=== PATIENT | female | born 1990 | race Asian ===

== ENCOUNTER 2024-03-13 14:45 | Inpatient (IN) | payer OTHER ==
[~2024-03-13] VITALS: Ht 160 cm; Wt 72.6 kg
[2024-03-13 14:51] VITALS: BP 132/78; PULSE 76; RESP 16; TEMP 97.9; O2SAT 99
[2024-03-13 15:28] LABS: BASOPHILS % (AUTO) 0.2 % (0.0-2.0); EOSINOPHILS % (AUTO) 0.3 % (0.0-4.0); HEMATOCRIT 37.8 % (36-48); HEMOGLOBIN 12.8 g/dL (12.0-16.0); LYMPHOCYTES # (AUTO) 1.2 K/uL (2.5-16.5); LYMPHOCYTES % (AUTO) 10.5 % (20.5-51.1); MEAN CORPUSCULAR HEMOGLOBIN 30 pg (27-31); MEAN CORPUSCULAR HGB CONC 34 g/dL (33-37); MEAN CORPUSCULAR VOLUME 89.3 fL (80-94); MONOCYTES # (AUTO) 0.3 K/uL (0.8-1.0); MONOCYTES % (AUTO) 2.6 % (1.7-9.3); NEUTROPHILS # (AUTO) 10.2 K/uL (1.8-7.7); NEUTROPHILS % (AUTO) 86.4 % (42.2-75.2); PLATELET COUNT (AUTO) 259 K/uL (140-450); RED BLOOD CELL COUNT(AUTO) 4.24 MIL/uL (4.20-5.40); RED CELL DISTRIBUTION WIDTH 13.2 % (11.6-13.7); WHITE BLOOD COUNT (AUTO) 11.8 K/uL (4.8-10.8)
[2024-03-13 15:39] LABS: APPEARANCE,URINE CLEAR (CLEAR); BILIRUBIN,URINE NEGATIVE (NEGATIVE); BLOOD, URINE 1+ (NEGATIVE); COLOR,URINE YELLOW (YELLOW); LEUKOCYTE ESTERASE ,URINE NEGATIVE (NEGATIVE); NITRITE, URINE NEGATIVE (NEGATIVE); PROTEIN,URINE NEGATIVE (NEGATIVE); UGLUCOSE NEGATIVE (NEGATIVE); UROBILINOGEN,URINE 0.2 EU/dL (0.2 - 1)
[2024-03-13 15:57] LABS: BACTERIA,URINE 10-30 (MOD) /HPF (None Seen); SQUAMOUS EPITHELIAL CELL,UR 4-10 (MOD) /LPF (0-3 (FEW)); WBC,URINE 0-5 /HPF (0-5)
[2024-03-13] MEDS: NACL 0.9% 1,000 ML IV ONE (18:42)
[2024-03-13] MEDS: LIDOCAINE/EPI 1% 1:100000 20 ML VIAL INJ ONE (19:04)
[2024-03-13] MEDS ORDERED: ONDANSETRON 4 MG/2 ML VIAL IVP PRN ×2 (19:15→20:45)
[2024-03-13] MEDS: LACTATED RINGERS 1,000 ML IV SCH (19:15)
[2024-03-13] MEDS ORDERED: MORPHINE SULFATE 4 MG/ML SYR IVP PRN (19:15)
[2024-03-13] MEDS ORDERED: HYDROcodone/APAP 5/325 MG 1 TAB TAB PO PRN (19:15)
[2024-03-13] MEDS ORDERED: MORPHINE SULFATE 2 MG/ML SYR IVP PRN (19:15)
[2024-03-13] MEDS ORDERED: ACETAMINOPHEN 325 MG TAB PO PRN (19:15)
[2024-03-13] MEDS: HYDROmorphone PFS 2 MG/ML SYR ONE (19:23)
[2024-03-13] MEDS: PROPOFOL 200 MG/20 ML VIAL IV ONE (19:25)
[2024-03-13] MEDS ORDERED: SEVOFLURANE 250 ML BTL INH ONE (20:00)
[2024-03-13] MEDS ORDERED: METOCLOPRAMIDE 10 MG/2 ML INJ VIAL ONE (20:00)
[2024-03-13] MEDS ORDERED: GLYCOPYRROLATE 0.2 MG/ML VIAL ONE (20:00)
[2024-03-13] MEDS ORDERED: NEOSTIGMINE 1:1000 10 MG/10 ML VIAL ONE (20:00)
[2024-03-13] MEDS: METOCLOPRAMIDE 10 MG/2 ML INJ VIAL ONE (20:03)
[2024-03-13] MEDS: ROCURONIUM 50 MG/5 ML VIAL IV ONE (20:03)
[2024-03-13] MEDS: DEXAMETHASONE 4 MG/ML VIAL ONE (20:03)
[2024-03-13] MEDS: ONDANSETRON 4 MG/2 ML VIAL ONE (20:03)
[2024-03-13] MEDS: ceFAZolin 2,000 MG VIAL ONE (20:07)
[2024-03-13] MEDS: KETOROLAC 30 MG/ML VIAL ONE (20:25)
[2024-03-13] MEDS ORDERED: HYDROmorphone 1 MG/ML AMP IVP PRN (20:45)
[2024-03-13] MEDS ORDERED: MEPERIDINE 25 MG/ML SYR IVP PRN (20:45)
[2024-03-13 21:30] VITALS: PULSE 90; RESP 18; O2SAT 98
[2024-03-14] VITALS: BP 104/69; PULSE 90; RESP 18; TEMP 97.9; O2SAT 97
[2024-03-14 04:00] VITALS: BP 103/57; PULSE 83; RESP 18; TEMP 97.3; O2SAT 99
[2024-03-14 06:08] LABS: BASOPHILS % (AUTO) 0.1 % (0.0-2.0); HEMOGLOBIN 12.1 g/dL (12.0-16.0); LYMPHOCYTES # (AUTO) 0.7 K/uL (2.5-16.5); LYMPHOCYTES % (AUTO) 7.9 % (20.5-51.1); MEAN CORPUSCULAR HEMOGLOBIN 30 pg (27-31); MEAN CORPUSCULAR HGB CONC 34 g/dL (33-37); MEAN CORPUSCULAR VOLUME 89.1 fL (80-94); MONOCYTES # (AUTO) 0.2 K/uL (0.8-1.0); MONOCYTES % (AUTO) 2.2 % (1.7-9.3); NEUTROPHILS % (AUTO) 89.8 % (42.2-75.2); PLATELET COUNT (AUTO) 253 K/uL (140-450); RED BLOOD CELL COUNT(AUTO) 4.04 MIL/uL (4.20-5.40); RED CELL DISTRIBUTION WIDTH 13.2 % (11.6-13.7); WHITE BLOOD COUNT (AUTO) 8.9 K/uL (4.8-10.8)
[2024-03-14 07:14] LABS: ALBUMIN 3.2 g/dL (3.4-5.0); ANION GAP 12.9 (8-16); CALCIUM 8.2 mg/dL (8.5-10.1); CARBON DIOXIDE 25.4 mmol/L (21-32); CREATININE 0.6 mg/dL (0.6-1.3); POTASSIUM 4.3 mmol/L (3.5-5.1); TOTAL BILIRUBIN 0.5 mg/dL (0.0-1.0); TOTAL PROTEIN, SERUM 6.9 g/dL (6.4-8.2)
[2024-03-14 08:00] VITALS: BP 104/54; PULSE 84; RESP 18; TEMP 98.1; O2SAT 100
[2024-03-14] MEDS: MEDS-TO-BEDS MC SCH (09:11)
[2024-03-14 11:48] VITALS: BP 104/54; PULSE 84; RESP 18; TEMP 98.1
[2024-03-14 12:00] VITALS: BP 104/54; PULSE 84; RESP 18; TEMP 98.1; O2SAT 100
== END 2024-03-14 13:55 | disposition home or self-care (01) | DRG 547 ==
LOC: MED 14:45 → MTU 19:15
PROVIDERS: ADMIT Hospitalist; ATTEND Hospitalist
PROC: 0UB54ZZ Excision of Right Fallopian Tube, Percutaneous Endoscopic Approach (ICD-10-PCS; 2024-03-13)
PROC: 10T24ZZ Resection of Products of Conception, Ectopic, Percutaneous Endoscopic Approach (ICD-10-PCS; principal; 2024-03-13 19:00)
DX: O00.101 Right tubal pregnancy without intrauterine pregnancy (principal); K66.1 Hemoperitoneum; E83.51 Hypocalcemia
CPT/HCPCS: 36415; 76817; 80053; 81001; 84702; 85025; 86886; 86900; 86901; 87081; 87086; 88305; 96360; 99285; J1100; J1171; J1885; J2001; J2405; J2704; J2710; J2765; J3490; J7030; Q0092